=== PATIENT | male | born 1980 | race American Indian/Alaskan Native ===

== ENCOUNTER 2016-07-19 03:18 | Emergency (ER) | payer SELFPAY | END 2016-07-19 03:32 | disposition left against medical advice (07) | LOC: ED 03:18 | DX: Z00.8 Encounter for other general examination (principal); Z53.21 Procedure and treatment not carried out due to patient leaving prior to being seen by health care provider ==

== ENCOUNTER 2016-10-09 18:32 | Emergency (ER) | payer SELFPAY ==
[2016-10-09] MEDS ORDERED: ATIVAN IM PRN (20:15)
--- NOTE | 2016-10-09 20:21 | Emergency Department Report ---
ED General Adult HPI - General Chief complaint: Psych Stated complaint: 1013/MH EVAL Time Seen by Provider: 10/09/16 20:13 Source: patient, RN notes reviewed Mode of arrival: Ambulatory Limitations: No Limitations - History of Present Illness Initial comments: This is a 35-year-old male. The patient has previously unknown to me. The patient presents to the ER requesting alcohol detox. The patient reports that he drinks multiple times per week. The patient is not homicidal or suicidal. The patient is not having hallucinations. police documentation does indicate that the patient was running towards someone with a loaded gun. The patient clarifies this, and indicates the gun was not loaded, and indicates that it was an antique toy. He indicates that he was drunk when he was doing this, and he also indicates that he knows that this was not an appropriate thing to do. The patient is adamant that he is not homicidal or suicidal. No headache, neck pain, chest pain, abdominal pain or shortness of breath. -: Gradual Improves with: none Worsens with: none Associated Symptoms: denies other symptoms - Related Data Previous Rx's Medication Instructions Recorded Last Taken Type Ondansetron [Zofran Odt] 4 mg PO QID PRN #20 tab.rapdis 10/09/16 Unknown Rx chlordiazePOXIDE [Librium] 25 mg PO Q8H PRN #15 capsule 10/09/16 Unknown Rx Allergies Allergy/AdvReac Type Severity Reaction Status Date / Time No Known Allergies Allergy Verified 03/15/16 02:23 ED Review of Systems ROS: Stated complaint: 1013/MH EVAL Other details as noted in HPI Constitutional: denies: fever Eyes: denies: vision change ENT: denies: epistaxis Respiratory: denies: cough Cardiovascular: denies: chest pain Gastrointestinal: denies: abdominal pain Genitourinary: as per HPI Musculoskeletal: as per HPI Skin: as per HPI Psychiatric: denies: homicidal thoughts, suicidal thoughts ED Past Medical Hx - Past Medical History Previous Medical History?: Yes Hx Hypertension: No Hx CVA: No Hx Heart Attack/AMI: No Hx Congestive Heart Failure: No Hx Diabetes: No Hx Deep Vein Thrombosis: No Hx Pulmonary Embolism: No Hx GERD: No Hx Liver Disease: No Hx Renal Disease: No Hx of Cancer: No Hx Sickle Cell Disease: No Hx Arthritis: No Hx Headaches / Migraines: No Hx Seizures: No Hx Kidney Stones: No Hx Psychiatric Treatment: Yes Hx Asthma: No Hx COPD: No Hx Tuberculosis: No Hx Dementia: No Hx HIV: No - Social History Smoking Status: Current Some Day Smoker Substance Use Type: Alcohol - Medications Home Medications: Home Medications Medication Instructions Recorded Confirmed Last Taken Type Ondansetron [Zofran Odt] 4 mg PO QID PRN #20 tab.rapdis 10/09/16 Unknown Rx chlordiazePOXIDE [Librium] 25 mg PO Q8H PRN #15 capsule 10/09/16 Unknown Rx ED Physical Exam - General Limitations: No Limitations General appearance: alert, in no apparent distress - Head Head exam: Present: atraumatic, normocephalic - Eye Eye exam: Present: normal appearance, EOMI. Absent: nystagmus - ENT ENT exam: Present: normal exam, normal orophraynx, mucous membranes moist, normal external ear exam - Neck Neck exam: Present: normal inspection, full ROM. Absent: tenderness, meningismus - Respiratory Respiratory exam: Present: normal lung sounds bilaterally. Absent: respiratory distress, wheezes, rales, rhonchi, stridor, chest wall tenderness, accessory muscle use, decreased breath sounds, prolonged expiratory - Cardiovascular Cardiovascular Exam: Present: regular rate, normal rhythm, normal heart sounds. Absent: bradycardia, tachycardia, irregular rhythm, systolic murmur, diastolic murmur, rubs, gallop - GI/Abdominal GI/Abdominal exam: Present: soft, normal bowel sounds. Absent: distended, tenderness, guarding, rebound, rigid, pulsatile mass - Rectal Rectal exam: Present: deferred - Extremities Exam Extremities exam: Present: normal inspection, full ROM, normal capillary refill. Absent: tenderness, pedal edema, joint swelling, calf tenderness - Back Exam Back exam: Present: normal inspection, full ROM. Absent: tenderness, CVA tenderness (R), CVA tenderness (L), muscle spasm, paraspinal tenderness, vertebral tenderness - Neurological Exam Neurological exam: Present: alert, oriented X3, normal gait, other (Extraocular movements intact. Tongue midline. No facial droop. Facial sensation intact to light touch in the V1, V2, V3 distribution bilaterally. 5 and 5 strength in 4 extremities.. Sensation is intact to light touch in 4 extremities.). Absent : motor sensory deficit - Psychiatric Psychiatric exam: Present: normal affect, normal mood. Absent: homicidal ideation, suicidal ideation - Skin Skin exam: Present: warm, dry, intact, normal color. Absent: rash ED Course Vital Signs 10/09/16 10/09/16 19:52 21:41 Temperature 98.4 F 98.4 F Pulse Rate 107 H 88 Respiratory 20 18 Rate Blood Pressure 124/91 Blood Pressure 127/81 [Right] O2 Sat by Pulse 97 98 Oximetry ED Medical Decision Making - Lab Data Result diagrams: 10/09/16 20:25 10/09/16 20:25 Vital Signs 10/09/16 10/09/16 19:52 21:41 Temperature 98.4 F 98.4 F Pulse Rate 107 H 88 Respiratory 20 18 Rate Blood Pressure 124/91 Blood Pressure 127/81 [Right] O2 Sat by Pulse 97 98 Oximetry Lab Results 10/09/16 10/09/16 10/09/16 Range/Units 20:25 20:25 20:25 WBC 14.3 H (4.5-11.0) K/mm3 RBC 4.81 (3.65-5.03) M/mm3 Hgb 14.9 (11.8-15.2) gm/dl Hct 44.4 (35.5-45.6) % MCV 92 (84-94) fl MCH 31 (28-32) pg MCHC 34 (32-34) % RDW 14.3 (13.2-15.2) % Plt Count 300 (140-440) K/mm3 Sodium 136 L (137-145) mmol/L Potassium 4.1 (3.6-5.0) mmol/L Chloride 96.6 L (98-107) mmol/L Carbon Dioxide 21 L (22-30) mmol/L Anion Gap 23 mmol/L BUN 8 L (9-20) mg/dL Creatinine 0.9 (0.8-1.5) mg/dL Estimated GFR > 60 ml/min BUN/Creatinine Ratio 8.88 % Glucose 99 (75-100) mg/dL Calcium 9.4 (8.4-10.2) mg/dL Magnesium 2.10 (1.7-2.3) mg/dL Total Bilirubin 0.30 (0.1-1.2) mg/dL AST 28 (5-40) units/L ALT 22 (7-56) units/L Alkaline Phosphatase 113 (35-129) units/L Total Protein 8.4 H (6.3-8.2) g/dL Albumin 4.7 (3.9-5) g/dL Albumin/Globulin Ratio 1.3 % Urine Color (Yellow) Urine Turbidity (Clear) Urine pH (5.0-7.0) Ur Specific [place] (1.003-1.030) Urine Protein (Negative) mg/dL Urine Glucose (UA) (Negative) mg/dL Urine Ketones (Negative) mg/dL Urine Blood (Negative) Urine Nitrite (Negative) Urine Bilirubin (Negative) Urine Urobilinogen (<2.0) mg/dL Ur Leukocyte Esterase (Negative) Urine WBC (Auto) (0.0-6.0) /HPF Urine RBC (Auto) (0.0-6.0) /HPF U Epithel Cells (Auto) (0-13.0) /HPF Urine Bacteria (Auto) (Negative) /HPF Hyaline Casts /LPF Urine Mucus /HPF Urine Sperm (AGRISCIENCE TEACHER) /HPF Salicylates (2.8-20.0) mg/dL Urine Opiates Screen Urine Methadone Screen Acetaminophen (10.0-30.0) ug/mL Ur Barbiturates Screen Ur Phencyclidine Scrn Ur Amphetamines Screen U Benzodiazepines Scrn Urine Cocaine Screen U Marijuana (THC) Screen Drugs of Abuse Note Plasma/Serum Alcohol (0-0.07) gm% 10/09/16 10/09/16 10/09/16 Range/Units 20:25 20:25 20:25 WBC (4.5-11.0) K/mm3 RBC (3.65-5.03) M/mm3 Hgb (11.8-15.2) gm/dl Hct (35.5-45.6) % MCV (84-94) fl MCH (28-32) pg MCHC (32-34) % RDW (13.2-15.2) % Plt Count (140-440) K/mm3 Sodium (137-145) mmol/L Potassium (3.6-5.0) mmol/L Chloride (98-107) mmol/L Carbon Dioxide (22-30) mmol/L Anion Gap mmol/L BUN (9-20) mg/dL Creatinine (0.8-1.5) mg/dL Estimated GFR ml/min BUN/Creatinine Ratio % Glucose (75-100) mg/dL Calcium (8.4-10.2) mg/dL Magnesium (1.7-2.3) mg/dL Total Bilirubin (0.1-1.2) mg/dL AST (5-40) units/L ALT (7-56) units/L Alkaline Phosphatase (35-129) units/L Total Protein (6.3-8.2) g/dL Albumin (3.9-5) g/dL Albumin/Globulin Ratio % Urine Color (Yellow) Urine Turbidity (Clear) Urine pH (5.0-7.0) Ur Specific [place] (1.003-1.030) Urine Protein (Negative) mg/dL Urine Glucose (UA) (Negative) mg/dL Urine Ketones (Negative) mg/dL Urine Blood (Negative) Urine Nitrite (Negative) Urine Bilirubin (Negative) Urine Urobilinogen (<2.0) mg/dL Ur Leukocyte Esterase (Negative) Urine WBC (Auto) (0.0-6.0) /HPF Urine RBC (Auto) (0.0-6.0) /HPF U Epithel Cells (Auto) (0-13.0) /HPF Urine Bacteria (Auto) (Negative) /HPF Hyaline Casts /LPF Urine Mucus /HPF Urine Sperm (AGRISCIENCE TEACHER) /HPF Salicylates < 0.3 L (2.8-20.0) mg/dL Urine Opiates Screen Urine Methadone Screen Acetaminophen < 15.0 (10.0-30.0) ug/mL Ur Barbiturates Screen Ur Phencyclidine Scrn Ur Amphetamines Screen U Benzodiazepines Scrn Urine Cocaine Screen U Marijuana (THC) Screen Drugs of Abuse Note Plasma/Serum Alcohol < 0.01 (0-0.07) gm% 10/09/16 10/09/16 Range/Units 20:30 20:30 WBC (4.5-11.0) K/mm3 RBC (3.65-5.03) M/mm3 Hgb (11.8-15.2) gm/dl Hct (35.5-45.6) % MCV (84-94) fl MCH (28-32) pg MCHC (32-34) % RDW (13.2-15.2) % Plt Count (140-440) K/mm3 Sodium (137-145) mmol/L Potassium (3.6-5.0) mmol/L Chloride (98-107) mmol/L Carbon Dioxide (22-30) mmol/L Anion Gap mmol/L BUN (9-20) mg/dL Creatinine (0.8-1.5) mg/dL Estimated GFR ml/min BUN/Creatinine Ratio % Glucose (75-100) mg/dL Calcium (8.4-10.2) mg/dL Magnesium (1.7-2.3) mg/dL Total Bilirubin (0.1-1.2) mg/dL AST (5-40) units/L ALT (7-56) units/L Alkaline Phosphatase (35-129) units/L Total Protein (6.3-8.2) g/dL Albumin (3.9-5) g/dL Albumin/Globulin Ratio % Urine Color Yellow (Yellow) Urine Turbidity Clear (Clear) Urine pH 5.0 (5.0-7.0) Ur Specific [place] 1.018 (1.003-1.030) Urine Protein <15 mg/dl (Negative) mg/dL Urine Glucose (UA) Neg (Negative) mg/dL Urine Ketones Neg (Negative) mg/dL Urine Blood Neg (Negative) Urine Nitrite Neg (Negative) Urine Bilirubin Neg (Negative) Urine Urobilinogen < 2.0 (<2.0) mg/dL Ur Leukocyte Esterase Neg (Negative) Urine WBC (Auto) 2.0 (0.0-6.0) /HPF Urine RBC (Auto) 2.0 (0.0-6.0) /HPF U Epithel Cells (Auto) < 1.0 (0-13.0) /HPF Urine Bacteria (Auto) 1+ (Negative) /HPF Hyaline Casts 1 /LPF Urine Mucus Few /HPF Urine Sperm Few (AGRISCIENCE TEACHER) /HPF Salicylates (2.8-20.0) mg/dL Urine Opiates Screen Presumptive negative Urine Methadone Screen Presumptive negative Acetaminophen (10.0-30.0) ug/mL Ur Barbiturates Screen Presumptive negative Ur Phencyclidine Scrn Presumptive negative Ur Amphetamines Screen Presumptive negative U Benzodiazepines Scrn Presumptive negative Urine Cocaine Screen Presumptive positive U Marijuana (THC) Screen Presumptive negative Drugs of Abuse Note Disclamer Plasma/Serum Alcohol (0-0.07) gm% - Medical Decision Making Differential diagnosis: Alcohol abuse, history of cocaine abuse, requesting alcohol detox Assessment and plan: 35-year-old male who is clinically sober, not homicidal, not suicidal, pleasant, calm, cooperative, requesting alcohol detox. The patient is seen in conjunction with the crisis team, who indicates that the patient does not meet 1013 criteria. The patient's does indicate that he was running towards a person while he was drunk with a toy gun, he does appear to have incised that this is not an appropriate thing to do, the patient is exhibiting insight. Patient is not tachycardic, tremulous or diaphoretic, he is not having hallucinations, he will be started on as needed Zofran and Librium, and he is given outpatient resources for alcohol detox. Critical care attestation.: If time is entered above; I have spent that time in minutes in the direct care of this critically ill patient, excluding procedure time. ED Disposition Clinical Impression: History of alcohol abuse Disposition: DC-01 TO HOME OR SELFCARE Is pt being admited?: No Does the pt Need Aspirin: No Condition: Stable Instructions: Abuse of Alcohol (ED), Polysubstance Abuse (ED) Additional Instructions: Take the Librium as needed for symptoms of alcohol withdrawal, which included shaking, sweating, nausea, tremulousness. Take the Zofran as needed for nausea. Discontinue consumption of alcohol, and cocaine if you are using cocaine. Cocaine is not good for your health. Follow up as an outpatient with the referrals that have been given to you. Return to the ER right away with fevers, chills, chest pain, shortness of breath , nausea, vomiting, confusion, homicidality, suicidality. Prescriptions: chlordiazePOXIDE [Librium] 25 mg PO Q8H PRN #15 capsule PRN Reason: Alcohol Withdrawal Ondansetron [Zofran Odt] 4 mg PO QID PRN #20 tab.rapdis PRN Reason: Nausea Referrals: PRIMARY CARE, [Primary Care Provider] - 3-5 Days MARIYA ZAMORA MD [Staff Physician] - 3-5 Days [facility] [Outside] - 3-5 Days
[2016-10-09] MEDS ORDERED: GEODON IM ONE (20:24)
[2016-10-09] MEDS ORDERED: HALDOL IM ONE (20:24)
[2016-10-09] MEDS ORDERED: ATIVAN IM ONE (20:24)
[2016-10-09 20:38] LABS: Urine Drugs of Abuse Note Disclamer
[2016-10-09 20:50] LABS: Hematocrit 44.4 % (35.5-45.6); Hemoglobin 14.9 gm/dl (11.8-15.2); Mean Corpuscular HGB Conc 34 % (32-34); Mean Corpuscular Hemoglobin 31 pg (28-32); Mean Corpuscular Volume 92 fl (84-94); Platelet Count 300 K/mm3 (140-440); Red Blood Count 4.81 M/mm3 (3.65-5.03); Red Cell Distribution Width 14.3 % (13.2-15.2); White Blood Count 14.3 K/mm3 (4.5-11.0)
[2016-10-09 20:54] LABS: Bacteria,Urine 1+ /HPF (Negative); Bilirubin,Urine NEG (Negative); Blood,Urine NEG (Negative); Ketones,Urine NEG (Negative); Leukocyte Esterase,Urine NEG (Negative); Mucus,Urine FEW /HPF; Nitrite,Urine NEG (Negative); Protein,Urine <15 mg/dL mg/dL (Negative); Sperm,Urine FEW /HPF (NP); Urobilinogen,Urine < 2.0 mg/dL (<2.0)
[2016-10-09 21:02] LABS: Alanine Aminotransferase 22 units/L (7-56); Albumin 4.7 g/dL (3.9-5); Albumin/Globulin Ratio 1.3 %; Alkaline Phosphatase 113 units/L (35-129); Anion Gap 23 mmol/L; BUN/Creatinine Ratio 8.88; Blood Urea Nitrogen 8 mg/dL (9-20); Calcium 9.4 mg/dL (8.4-10.2); Carbon Dioxide 21 mmol/L (22-30); Chloride 96.6 mmol/L (98-107); Glucose 99 mg/dL (75-100); Potassium 4.1 mmol/L (3.6-5.0); Sodium 136 mmol/L (137-145); Total Protein 8.4 g/dL (6.3-8.2)
[2016-10-09 21:42] VITALS: BP 127/81
== END 2016-10-09 22:17 | disposition home or self-care (01) ==
LOC: ED 18:32
DX: F10.10 Alcohol abuse, uncomplicated (principal); F17.200 Nicotine dependence, unspecified, uncomplicated
CPT/HCPCS: 36415; 80053; 80307; 81001; 83735; 85027; 99284; G0480; J3486; 80320; J1630; J2060

== ENCOUNTER 2016-12-22 04:04 | Emergency (ER) | payer SELFPAY ==
[2016-12-22 06:10] LABS: Basophils % (Auto) 0.4 % (0.0-1.8); Eosinophils % (Auto) 0.3 % (0.0-4.3); Hematocrit 46.1 % (35.5-45.6); Hemoglobin 15.2 gm/dl (11.8-15.2); Mean Corpuscular HGB Conc 33 % (32-34); Mean Corpuscular Hemoglobin 31 pg (28-32); Mean Corpuscular Volume 93 fl (84-94); Platelet Count 310 K/mm3 (140-440); Red Blood Count 4.99 M/mm3 (3.65-5.03); Red Cell Distribution Width 14.1 % (13.2-15.2); White Blood Count 12.4 K/mm3 (4.5-11.0)
[2016-12-22 06:29] LABS: Anion Gap 26 mmol/L; Blood Urea Nitrogen 12 mg/dL (9-20); Calcium 9.6 mg/dL (8.4-10.2); Carbon Dioxide 22 mmol/L (22-30); Chloride 93.1 mmol/L (98-107); Glucose 69 mg/dL (75-100); Potassium 4.1 mmol/L (3.6-5.0); Sodium 137 mmol/L (137-145)
--- NOTE | 2016-12-22 07:38 | Emergency Department Report ---
HPI - General Chief Complaint: Psych Time Seen by Provider: 12/22/16 07:17 - [facility] HPI: Room 10 The patient is 35-year-old male presenting with a chief complaint of altered behavior. Patient was brought in by police under [id number] stating "paranoid, hallucinating, walking around the neighborhood hiding in bushes. Called 911 stating that his mother was trapped in the house and could not breathe. His mother was not trapped and was in good health." "Diagnosed with bipolar disorder. Hallucinates. Refuses to take medication. Drinks excessively when depressed." The patient states he ran out of the house because his mother complained of shortness of breath. Patient states he currently feels "good. Patient does desire help with alcohol abuse. Patient states he drinks between a 6 and 12 pack of beer daily and last consumed yesterday morning Location: Mental state Duration: [see above] Quality: Erratic Severity: Moderate Modifying factors: [see above] Context: [see above] Mode of transportation: [not driving] ED Past Medical Hx - Past Medical History Previous Medical History?: Yes Hx Psychiatric Treatment: Yes (ADHD) - Surgical History Past Surgical History?: No - Family History Family history: no significant - Social History Smoking Status: Current Some Day Smoker Substance Use Type: Alcohol (6-12 beers daily), Marijuana - Medications Home Medications: Home Medications Medication Instructions Recorded Confirmed Last Taken Type No Known Home Medications [No 12/22/16 12/22/16 Unknown History Reported Home Medications] ED Review of Systems ROS: Stated complaint: MH EVAL Other details as noted in HPI Comment: All other systems reviewed and negative Constitutional: denies: chills, fever Eyes: denies: eye pain, eye discharge, vision change ENT: denies: ear pain, throat pain Respiratory: denies: cough, shortness of breath, wheezing Cardiovascular: denies: chest pain, palpitations Endocrine: no symptoms reported Gastrointestinal: denies: abdominal pain, nausea, diarrhea Genitourinary: denies: urgency, dysuria Musculoskeletal: denies: back pain, joint swelling, arthralgia Skin: denies: rash, lesions Neurological: denies: headache, weakness, paresthesias Psychiatric: other (paranoid behavior). denies: homicidal thoughts, suicidal thoughts Hematological/Lymphatic: denies: easy bleeding, easy bruising Physical Exam - Physical Exam Vital Signs: Vital Signs 12/22/16 05:19 Temperature 98.2 F Pulse Rate 106 H Respiratory 16 Rate Blood Pressure 145/65 O2 Sat by Pulse 99 Oximetry Physical Exam: GENERAL: The patient is well-developed well-nourished male lying on stretcher not appearing to be in acute distress. [] HEENT: Normocephalic. Atraumatic. Extraocular motions are intact. Patient has moist mucous membranes. NECK: Supple. No meningitic signs are noted. Trachea midline CHEST/LUNGS: Clear to auscultation. There is no respiratory distress noted. HEART/CARDIOVASCULAR: Regular. There is no tachycardia. There is no gallop rub or murmur. ABDOMEN: Abdomen is soft, nontender. Patient has normal bowel sounds. There is no abdominal distention. SKIN: There is no rash. There is no edema. There is no diaphoresis. NEURO: The patient is awake, alert, and oriented. The patient is cooperative. The patient has no focal neurologic deficits. The patient has normal speech. Cranial nerves II through XII grossly intact, no drift. No tremulousness noted MUSCULOSKELETAL:There is no evidence of acute injury. ED Course Vital Signs 12/22/16 05:19 Temperature 98.2 F Pulse Rate 106 H Respiratory 16 Rate Blood Pressure 145/65 O2 Sat by Pulse 99 Oximetry ED Medical Decision Making - Lab Data Result diagrams: 12/22/16 05:39 12/22/16 05:39 - Differential Diagnosis bipolar disorder, alcohol abuse, Critical care attestation.: If time is entered above; I have spent that time in minutes in the direct care of this critically ill patient, excluding procedure time. ED Disposition Clinical Impression: Polysubstance abuse Disposition: Z-07 ELOPED Is pt being admited?: No Does the pt Need Aspirin: No Condition: Stable Referrals: PRIMARY CARE, [Primary Care Provider] - 3-5 Days
[2016-12-22] MEDS ORDERED: VITAMIN B-1 100 MG, FOLVITE 1 MG, INFUVITE 10 ML, MAGNESIUM SULFATE 2 GM in NACL 0.9% 1... IV ONE (07:39)
[2016-12-22 07:43] LABS: Urine Drugs of Abuse Note Disclamer
[2016-12-22] MEDS ORDERED: NACL 0.9% 1000 ML 1,000 ML ONE (08:38)
[2016-12-22] MEDS ORDERED: NACL 0.9% 1000 ML 1,000 ML IV ONE ×2 (08:51→08:53)
[2016-12-22 08:53] LABS: Bacteria,Urine 1+ /HPF (Negative); Bilirubin,Urine NEG (Negative); Blood,Urine NEG (Negative); Ketones,Urine 20 mg/dL (Negative); Leukocyte Esterase,Urine NEG (Negative); Mucus,Urine FEW /HPF; Nitrite,Urine NEG (Negative); Protein,Urine <15 mg/dL mg/dL (Negative); Urobilinogen,Urine < 2.0 mg/dL (<2.0)
--- NOTE | 2016-12-22 15:48 | Consultation ---
History of Present Illness - Reason for Consult Consult date: 12/22/16 Reason for consult: psychiatric evaluation - Chief Complaint Chief complaint: "I thought my mom was sick." The patient is 35-year-old male see for psychiatric evaluation in the ER. Patient was brought in by police under [id number] stating "paranoid, hallucinating, walking around the neighborhood hiding in bushes. Someone called 911 stating that his mother was trapped in the house and could not breathe. His mother was not trapped and was in good health." Collateral per police documentation reveals he is diagnosed with bipolar disorder. He refuses for anyone to speak with his mother. He states she would probably say he needs help for alcohol. The police documentation reports he refuses to take medication. Patient states he drinks between a 6 and 12 pack of beer daily and last consumed yesterday morning. His alcohol level was less than 0.01. He was positive for cocaine in his UDS but denies use. He states he might have been so intoxicated he could have. He currently denies AVH or SI/HI. He is minimizing his initial presentation. Medications and Allergies Allergies Allergy/AdvReac Type Severity Reaction Status Date / Time No Known Allergies Allergy Verified 12/22/16 09:28 Home Medications Medication Instructions Recorded Confirmed Last Taken Type No Known Home Medications [No 12/22/16 12/22/16 Unknown History Reported Home Medications] Past psychiatric history - Past Medical History Past Medical History: other (he denies) - past Psychiatric treatment and history Psych: Bipolar - Social History Social history: other (he reports an issue with a 'whiteside" and that he cannot be around his mother but he is staying with her) Mental Status Exam - Vital signs Last Vital Signs Temp 98.2 F 12/22/16 05:19 Pulse 75 12/22/16 08:20 Resp 16 12/22/16 08:20 BP 120/74 12/22/16 08:20 Pulse Ox 100 12/22/16 08:20 - Exam Orientation: time, place, person Affect: anxious Mood: congruent with affect Thought content: paranoia Thought Process: Circumstantial Perceptions: other (denies) Speech: normal rate and pattern Concentration: distractible Motor activity: normal Level of consciousness: alert Memory: Intact Sleep Symptoms: Restless Interaction: other (evasive) Results Result Diagrams: 12/22/16 05:39 12/22/16 05:39 Abnormal lab results 12/22/16 12/22/16 Range/Units 05:39 05:39 WBC 12.4 H (4.5-11.0) K/mm3 Hct 46.1 H (35.5-45.6) % Lymph % (Auto) 10.4 L (13.4-35.0) % [place] % (Auto) 9.8 H (0.0-7.3) % [place] # 1.2 H (0.0-0.8) K/mm3 Seg Neutrophils % 79.1 H (40.0-70.0) % Seg Neutrophils # 9.8 H (1.8-7.7) K/mm3 Chloride 93.1 L (98-107) mmol/L Glucose 69 L (75-100) mg/dL All other labs normal. Assessment and Plan Assessment and plan: Impression: He is evasive. He admits to daily drinking, although his alcohol level was < 0.01. He did not readily admit to cocaine use. The mortgage loan officer originator report indicates he has bipolar disorder and has been non compliant with medication with recent paranoia and bizarre behavior. psychosis unspecified alcohol use disorder cocaine use historical dx of bipolar disorder ddx: substance induced psychotic disorder Recommendation: 1013 for paranoia and bizarre behavior. Consent to speak to his mother is needed but he refuses. Transfer to inpatient psychiatric facility for stabilization. CIWA if indicated. Risperdal 1mg hs for psychotic symptoms/mood Ativan 1mg [id number] prn agitation
[2016-12-22] MEDS ORDERED: ATIVAN IM PRN (15:49)
[2016-12-22] MEDS: RisperDAL PO SCH (23:06)
--- NOTE | 2016-12-23 15:47 | Progress Note ---
Subjective - Reason for Consult Consult date: 12/23/16 Reason for consult: follow up - Chief Complaint Chief complaint: "I thought my mom was sick." The patient is 35-year-old male see for psychiatric evaluation in the ER. Patient was brought in by police under 1013 stating "paranoid, hallucinating, walking around the neighborhood hiding in bushes. Someone called 911 stating that his mother was trapped in the house and could not breathe. His mother was not trapped and was in good health." Collateral per police documentation reveals he is diagnosed with bipolar disorder. He refuses for anyone to speak with his mother. He states she would probably say he needs help for alcohol. The police documentation reports he refuses to take medication. Patient states he drinks between a 6 and 12 pack of beer daily and last consumed yesterday morning. His alcohol level was less than 0.01. He was positive for cocaine in his UDS but denies use. He states he might have been so intoxicated he could have. He currently denies AVH or SI/HI. He is minimizing his initial presentation. Mental Status Exam - Vital signs Last Vital Signs Temp 98.6 F 12/23/16 09:48 Pulse 80 12/23/16 09:48 Resp 20 12/23/16 09:48 BP 107/61 12/23/16 09:48 Pulse Ox 95 12/23/16 09:48 Assessment and Plan - Exam Orientation: time, place, person Affect: anxious Mood: congruent with affect Thought content: he denies suicidal or homicidal ideation Thought Process: Circumstantial Perceptions: other (denies) Speech: normal rate and pattern Concentration: focus Motor activity: normal Level of consciousness: alert Memory: Intact Sleep Symptoms: Restless Interaction: cooperative Assessment and plan: Impression: He has admitted to regular alcohol and cocaine use, on the weekends. He admits the paranoia happens when he is coming down from cocaine and has resulted in police being called. He states he told the police he had bipolar because he did not want them to find out his behavior was because of cocaine. psychosis unspecified alcohol use disorder cocaine use substance induced psychotic disorder Recommendation: He consents to staff speaking with his mother but states she is not available until Saturday. He does not have number readily available. Consider recommendation for outpatient mental health and substance use treatment will further evaluation and collateral. CIWA if indicated. Risperdal 1mg hs for psychotic symptoms/mood-, he refuses stating his paranoia has resolved. Ativan 1mg [id number] prn agitation
[2016-12-23] MEDS: RisperDAL PO SCH (22:33)
[2016-12-24 08:36] VITALS: BP 106/61
--- NOTE | 2016-12-24 14:04 | Progress Note ---
Subjective - Reason for Consult Consult date: 12/24/16 Reason for consult: Psychiatry Follow-up - Chief Complaint Chief complaint: "I need help with my drinking and substance abuse" The patient is 35-year-old male see for psychiatric evaluation in the ER. Patient was brought in by police under 1013 stating "paranoid, hallucinating, walking around the neighborhood hiding in bushes. Today the patient is calm and cooperative during the assessment. He was adamant about getting help for his substance and alcohol abuse (etoh) once discharged. I spoke with his mother Yasmin Shirley [phone], she stated that she will be his support system. She stated that her son does not have a mental health hx (Bipolar Do) other than using recreational drugs and excessive alcohol consumption. He denies SI/HI's, AVH's, and depression. Mental Status Exam - Vital signs Last Vital Signs Temp 98.6 F 12/24/16 08:35 Pulse 72 12/24/16 08:35 Resp 16 12/24/16 08:36 BP 106/61 12/24/16 08:35 Pulse Ox 99 12/24/16 08:36 - Exam Narrative exam: MSE: Appearance: calm, cooperative Behavior: regular eye contact Speech: regular rate and tone Mood: "better" Affect: appropriate Thought Process: linear Thought Content: denies SI/HI's and AVH's Motor Activity: ambulatory Cognition: A/Ox 3 Insight: fair Judgment: fair Assessment and Plan Impression: Psychosis unspecified, alcohol use disorder, Substance Use DO, Substance induced psychotic disorder. No acute withdrawals noted (etoh). Patient is no threat to self or others. Recommendation/Plan: Rescind 1013. Patient will follow-up with [facility] for outpatient rehab services. Patient does not need a prescription. D/C'd Risperdal.
--- NOTE | 2016-12-24 16:34 | Event Note ---
Date: 12/24/16 The patient is assessed by myself. He is neither homicidal nor suicidal. He is alert and oriented 3, with a GCS of 15, NIH score of 0, and he is clinically sober at this time. His involuntary hold/1013 has been discontinued by psychiatry, and the plan is for the patient to follow up with the [facility]. He will be discharged at this time with a presumptive diagnosis of substance abuse psychotic disorder. Vital Signs 12/22/16 12/22/16 12/22/16 05:19 05:30 08:20 Temperature 98.2 F Pulse Rate 106 H 75 Respiratory 16 18 16 Rate Blood Pressure 145/65 Blood Pressure 120/74 [Right] O2 Sat by Pulse 99 100 100 Oximetry 12/22/16 12/22/16 12/23/16 20:18 22:50 09:48 Temperature 98.7 F 98.6 F Pulse Rate 81 80 Respiratory 20 20 20 Rate Blood Pressure Blood Pressure 102/65 107/61 [Right] O2 Sat by Pulse 100 99 95 Oximetry 12/24/16 12/24/16 08:35 08:36 Temperature 98.6 F Pulse Rate 72 Respiratory 16 16 Rate Blood Pressure Blood Pressure 106/61 [Right] O2 Sat by Pulse 99 99 Oximetry Vital Signs 12/22/16 12/22/16 12/22/16 05:19 05:30 08:20 Temperature 98.2 F Pulse Rate 106 H 75 Respiratory 16 18 16 Rate Blood Pressure 145/65 Blood Pressure 120/74 [Right] O2 Sat by Pulse 99 100 100 Oximetry 12/22/16 12/22/16 12/23/16 20:18 22:50 09:48 Temperature 98.7 F 98.6 F Pulse Rate 81 80 Respiratory 20 20 20 Rate Blood Pressure Blood Pressure 102/65 107/61 [Right] O2 Sat by Pulse 100 99 95 Oximetry 12/24/16 12/24/16 08:35 08:36 Temperature 98.6 F Pulse Rate 72 Respiratory 16 16 Rate Blood Pressure Blood Pressure 106/61 [Right] O2 Sat by Pulse 99 99 Oximetry
== END 2016-12-24 17:17 | disposition home or self-care (01) ==
LOC: EEVIPCON 04:04 → ED 04:04
DX: F12.10 Cannabis abuse, uncomplicated (principal); F10.10 Alcohol abuse, uncomplicated; F17.210 Nicotine dependence, cigarettes, uncomplicated
CPT/HCPCS: 36415; 80048; 80307; 81001; 82550; 85025; 96365; 96366; 99284; G0480; J3411; J3475; J7030; 80320

== ENCOUNTER 2019-11-13 22:49 | Emergency (ER) | payer SELFPAY ==
--- NOTE | 2019-11-14 00:23 | Emergency Department Report ---
ED Psych HPI - General Chief Complaint: Psych Stated Complaint: MH EVAL Time Seen by Provider: 11/14/19 00:17 Source: patient, EMS Mode of arrival: Ambulatory Limitations: No Limitations - History of Present Illness Initial Comments: Patient is a 38-year-old male that presents emergency room with no complaints. Patient states that he was at home in his shower and his alarm went off because somebody was breaking in through the window and he jumped out of the shower and left his house. Patient states he ran away from his house and the police found him. The police then went to his house and saw that the alarm was tripped by an open window and told him that he could either go to longterm or go to the hospital for mental evaluation. Patient was brought in by EMS. Patient does not have any psych history. Patient denies suicidal homicidal addition. Patient denies hallucinations. Patient states he was purely trying to get away from what he thought was somebody breaking into his house. Patient states that he remembers the entire scenario. Patient states he only came here because his only options were to go to longterm or to come to the hospital and be evaluated. Patient states then EMS brought him to the hospital against his will but he did not want to go to longterm so he came to the hospital anyway. Patient states he does not want to be here but he did not know what else to do and he did not want to go to longterm. Patient states he is not having any issues and is ready to go. Patient denies chest pain or shortness of breath. Patient denies abdominal pain. Patient denies any physical complaints. Patient denies recent travel. Patient denies recent international travel. Patient denies exposure to the novel coronavirus. Patient denies sick contacts. Patient denies fever and chills. Patient denies cough. Patient denies diarrhea. Patient denies coming in contact with anybody with symptoms of the novel coronavirus. -: Sudden Associated Psychiatric Symptoms: none History of same: No Improves With: none Worsens With: none Associated Symptoms: denies other symptoms. denies: confusion, headache, shortness of breath, nausea, vomiting, syncope, insomnia Treatments Prior to Arrival: none - Related Data Home Medications Medication Instructions Recorded Confirmed Last Taken No Known Home Medications [No 12/22/16 12/22/16 Unknown Reported Home Medications] Allergies Allergy/AdvReac Type Severity Reaction Status Date / Time No Known Allergies Allergy Verified 12/22/16 09:28 ED Review of Systems ROS: Stated complaint: MH EVAL Other details as noted in HPI Constitutional: denies: chills, fever Eyes: denies: eye pain, eye discharge, vision change ENT: denies: ear pain, throat pain Respiratory: denies: cough, shortness of breath, wheezing Cardiovascular: denies: chest pain, palpitations Endocrine: no symptoms reported Gastrointestinal: denies: abdominal pain, nausea, diarrhea Genitourinary: denies: urgency, dysuria Musculoskeletal: denies: back pain, joint swelling, arthralgia Skin: denies: rash, lesions Neurological: denies: headache, weakness, paresthesias Psychiatric: denies: anxiety, depression, auditory hallucinations, visual hallucinations, homicidal thoughts, suicidal thoughts Hematological/Lymphatic: denies: easy bleeding, easy bruising ED Past Medical Hx - Past Medical History Previous Medical History?: No Hx Hypertension: No Hx CVA: No Hx Heart Attack/AMI: No Hx Congestive Heart Failure: No Hx Diabetes: No Hx Deep Vein Thrombosis: No Hx Pulmonary Embolism: No Hx GERD: No Hx Liver Disease: No Hx Renal Disease: No Hx Sickle Cell Disease: No Hx Arthritis: No Hx Headaches / Migraines: No Hx Seizures: No Hx Kidney Stones: No Hx Psychiatric Treatment: Yes (ADHD) Hx Asthma: No Hx COPD: No Hx Tuberculosis: No Hx Dementia: No Hx HIV: No - Surgical History Past Surgical History?: No - Family History Family history: no significant - Social History Smoking Status: Current Every Day Smoker Substance Use Type: Alcohol - Medications Home Medications: Home Medications Medication Instructions Recorded Confirmed Last Taken Type No Known Home Medications [No 12/22/16 12/22/16 Unknown History Reported Home Medications] ED Physical Exam - General Limitations: No Limitations General appearance: alert, in no apparent distress - Head Head exam: Present: atraumatic, normocephalic - Eye Eye exam: Present: normal appearance, PERRL Pupils: Present: normal accommodation - ENT ENT exam: Present: mucous membranes moist - Neck Neck exam: Present: normal inspection - Respiratory Respiratory exam: Present: normal lung sounds bilaterally. Absent: respiratory distress - Cardiovascular Cardiovascular Exam: Present: regular rate, normal rhythm. Absent: systolic murmur, diastolic murmur, rubs, gallop - GI/Abdominal GI/Abdominal exam: Present: soft, normal bowel sounds - Rectal Rectal exam: Present: deferred - Extremities Exam Extremities exam: Present: normal inspection - Back Exam Back exam: Present: normal inspection - Neurological Exam Neurological exam: Present: alert, oriented X3 - Psychiatric Psychiatric exam: Present: normal affect, normal mood. Absent: depressed, agitated, anxious, flat affect, manic, homicidal ideation, suicidal ideation - Expanded Psychiatric Exam Expanded Focused psych exam: Absent: pressured speech, internal stimuli, echolalia, psychomotor agitation, delusional, catatonic, mute, perseverating, euphoric, restlessness, flight of ideas, loose associations - Skin Skin exam: Present: warm, dry, intact, normal color. Absent: rash ED Course - Reevaluation(s) Reevaluation #1: Initial evaluation done. Patient does not appear to have any alteration in his mentation or mental health. Patient does not appear to be to himself or others. Patient is having symptoms of acute psychosis. Patient does not have any suicidal or homicidal ideation. Patient does not have any other complaints. At this time the patient is psychiatrically medically cleared. Patient does not require 1013 or inpatient stabilization. Patient does not require further services in the ER. 11/14/19 00:30 ED Medical Decision Making - Medical Decision Making Patient is a 38-year-old male that presents emergency room for a mental health evaluation ordered by the police. EMS brought the patient to the hospital for a mental health evaluation. Patient complaints. Patient of sound mind and body. Patient answers all questions appropriately. Patient does not exhibit any symptoms of acute psychosis. Patient denies suicidal homicidal ideations. From a psychiatric and medical standpoint, the patient is cleared. Patient does not require further emergency services. Patient does not require inpatient psychiatric stabilization. Patient does not require a 1013. Patient does not require an ER hold. Patient will be discharged home. - Differential Diagnosis Normal exam, medical clearance. Mental health evaluation Critical care attestation.: If time is entered above; I have spent that time in minutes in the direct care of this critically ill patient, excluding procedure time. ED Disposition Clinical Impression: Medical clearance for psychiatric admission Disposition: DC-01 TO HOME OR SELFCARE Is pt being admited?: No Does the pt Need Aspirin: No Condition: Stable Instructions: Normal Exam (ED) Additional Instructions: Patient to follow-up with primary care in 2 to 3 days. Patient to return to the ER if condition worsens, changes or new symptoms arise. Referrals: THO GIRALDO MD [Primary Care Provider] - 2-3 Days Time of Disposition: 00:33
[2019-11-14 02:14] VITALS: BP 127/85
== END 2019-11-14 00:52 | disposition home or self-care (01) ==
LOC: ED 22:49
DX: R46.2 Strange and inexplicable behavior (principal); Z00.00 Encounter for general adult medical examination without abnormal findings; F90.8 Attention-deficit hyperactivity disorder, other type; F17.200 Nicotine dependence, unspecified, uncomplicated
CPT/HCPCS: 99283

== ENCOUNTER 2021-06-11 04:04 | Emergency (ER) | payer SELFPAY ==
--- NOTE | 2021-06-11 04:51 | Event Note ---
ED Screening Note ED Screening Note: Complaint: "I just need to get some advice. I need to speak to someone about my problems." HPI: This is a 40-year-old male with history of alcohol and polysubstance abuse. He desires to speak to someone about "ongoing.". He denies suicidal homicidal ideation. Denies hallucinations. Medical screening exam completed. He does not require involuntary hold this time. Awaiting further treatment evaluation by my colleague. Screening labs ordered.
[2021-06-11 05:21] LABS: Basophils % (Auto) 0.4 % (0.0-1.8); Eosinophils # (Auto) 0.2 K/mm3 (0.0-0.4); Eosinophils % (Auto) 1.5 % (0.0-4.3); Hematocrit 43.1 % (35.5-45.6); Hemoglobin 14.4 gm/dl (11.8-15.2); Lymphocytes # (Auto) 2.3 K/mm3 (1.2-5.4); Lymphocytes % (Auto) 20.8 % (13.4-35.0); Mean Corpuscular HGB Conc 33 % (32-34); Mean Corpuscular Volume 90 fl (84-94); Monocytes # (Auto) 1.4 K/mm3 (0.0-0.8); Monocytes % (Auto) 12.4 % (0.0-7.3); Platelet Count 338 K/mm3 (140-440); Red Blood Count 4.77 M/mm3 (3.65-5.03); Red Cell Distribution Width 13.7 % (13.2-15.2)
[2021-06-11 05:35] LABS: BUN/Creatinine Ratio 11; Blood Urea Nitrogen 10 mg/dL (9-20); Calcium 9.5 mg/dL (8.4-10.2); Hemolysis Index 36
--- NOTE | 2021-06-11 06:45 | Emergency Department Report ---
ED Psych HPI - General Chief Complaint: Psych Stated Complaint: MENTAL HEALTH CONCERNS Time Seen by Provider: 06/11/21 06:10 Source: patient, family Mode of arrival: Ambulatory Limitations: No Limitations - History of Present Illness Initial Comments: 40-year-old male with a past medical history of ADHD, anxiety, and depression presents to the hospital with complaints of needing to speak to a doctor. Patient appears to not have any mental health resources and wants advice on to how to get help. He denies hallucinations, homicidal, or suicidal ideation. He also denies physical complaints. He has been on medications in the past but cannot recall the name. Is not currently taking any medications for psychiatric conditions - Related Data Previous Rx's Medication Instructions Recorded Last Taken Type buPROPion XL [Wellbutrin Xl] 150 mg PO QAM 30 Days #30 06/11/21 Unknown Rx traZODone [Desyrel] 50 mg PO QHS 30 Days #30 tab 06/11/21 Unknown Rx Allergies Allergy/AdvReac Type Severity Reaction Status Date / Time No Known Allergies Allergy Verified 12/22/16 09:28 ED Review of Systems ROS: Stated complaint: MENTAL HEALTH CONCERNS Other details as noted in HPI Comment: All other systems reviewed and negative ED Past Medical Hx - Past Medical History Previous Medical History?: Yes Hx Hypertension: No Hx CVA: No Hx Heart Attack/AMI: No Hx Congestive Heart Failure: No Hx Diabetes: No Hx Deep Vein Thrombosis: No Hx Pulmonary Embolism: No Hx GERD: No Hx Liver Disease: No Hx Renal Disease: No Hx Sickle Cell Disease: No Hx Arthritis: No Hx Headaches / Migraines: No Hx Seizures: No Hx Kidney Stones: No Hx Psychiatric Treatment: Yes (ADHD, Anxiety, Depression) Hx Asthma: No Hx COPD: No Hx Tuberculosis: No Hx Dementia: No Hx HIV: No - Surgical History Past Surgical History?: No - Social History Smoking Status: Current Every Day Smoker Substance Use Type: None - Medications Home Medications: Home Medications Medication Instructions Recorded Confirmed Last Taken Type buPROPion XL [Wellbutrin Xl] 150 mg PO QAM 30 Days #30 06/11/21 Unknown Rx traZODone [Desyrel] 50 mg PO QHS 30 Days #30 tab 06/11/21 Unknown Rx ED Physical Exam - General Limitations: No Limitations - Other Other exam information: General: No acute distress Head: Atraumatic Eyes: normal appearance ENT: Moist mucous membranes Neck: Normal appearance, no midline tenderness Chest: Clear to auscultation bilaterally CV: Regular rate and rhythm Abdomen: Soft, normal bowel sounds, nontender, nondistended, no rebound or guarding Back: Normal inspection Extremity: Normal inspection, full range of motion Neuro: Alert O x 3, no facial asymmetry, speech clear, no gross motor sensory deficit Psych: Appropriate behavior Skin: No rash ED Course Vital Signs 06/11/21 06/11/21 06/11/21 04:19 06:34 10:20 Temperature 98.2 F Pulse Rate 108 H Respiratory 18 17 Rate Blood Pressure 128/89 Blood Pressure [Right] O2 Sat by Pulse 98 100 100 Oximetry 06/11/21 10:48 Temperature 98.4 F Pulse Rate 85 Respiratory 16 Rate Blood Pressure Blood Pressure 107/64 [Right] O2 Sat by Pulse Oximetry ED Medical Decision Making - Lab Data Result diagrams: 06/11/21 05:02 06/11/21 05:02 Lab Results 06/11/21 06/11/21 06/11/21 Range/Units 05:02 05:02 05:02 WBC 11.0 (4.5-11.0) K/mm3 RBC 4.77 (3.65-5.03) M/mm3 Hgb 14.4 (11.8-15.2) gm/dl Hct 43.1 (35.5-45.6) % MCV 90 (84-94) fl MCH 30 (28-32) pg MCHC 33 (32-34) % RDW 13.7 (13.2-15.2) % Plt Count 338 (140-440) K/mm3 Lymph % (Auto) 20.8 (13.4-35.0) % [place] % (Auto) 12.4 H (0.0-7.3) % Eos % (Auto) 1.5 (0.0-4.3) % Baso % (Auto) 0.4 (0.0-1.8) % Lymph # (Auto) 2.3 (1.2-5.4) K/mm3 [place] # (Auto) 1.4 H (0.0-0.8) K/mm3 Eos # (Auto) 0.2 (0.0-0.4) K/mm3 Baso # (Auto) 0.0 (0.0-0.1) K/mm3 Seg Neutrophils % 64.9 (40.0-70.0) % Seg Neutrophils # 7.1 (1.8-7.7) K/mm3 Sodium 135 L (137-145) mmol/L Potassium 4.1 (3.6-5.0) mmol/L Chloride 100.8 (98-107) mmol/L Carbon Dioxide 24 (22-30) mmol/L Anion Gap 14 mmol/L BUN 10 (9-20) mg/dL Creatinine 0.9 (0.8-1.3) mg/dL Estimated GFR > 60 ml/min BUN/Creatinine Ratio 11 % Glucose 80 (75-100) mg/dL Calcium 9.5 (8.4-10.2) mg/dL Salicylates < 0.3 L (2.8-20.0) mg/dL Acetaminophen (10.0-30.0) ug/mL Plasma/Serum Alcohol (0-0.07) % 06/11/21 06/11/21 Range/Units 05:02 05:02 WBC (4.5-11.0) K/mm3 RBC (3.65-5.03) M/mm3 Hgb (11.8-15.2) gm/dl Hct (35.5-45.6) % MCV (84-94) fl MCH (28-32) pg MCHC (32-34) % RDW (13.2-15.2) % Plt Count (140-440) K/mm3 Lymph % (Auto) (13.4-35.0) % [place] % (Auto) (0.0-7.3) % Eos % (Auto) (0.0-4.3) % Baso % (Auto) (0.0-1.8) % Lymph # (Auto) (1.2-5.4) K/mm3 [place] # (Auto) (0.0-0.8) K/mm3 Eos # (Auto) (0.0-0.4) K/mm3 Baso # (Auto) (0.0-0.1) K/mm3 Seg Neutrophils % (40.0-70.0) % Seg Neutrophils # (1.8-7.7) K/mm3 Sodium (137-145) mmol/L Potassium (3.6-5.0) mmol/L Chloride (98-107) mmol/L Carbon Dioxide (22-30) mmol/L Anion Gap mmol/L BUN (9-20) mg/dL Creatinine (0.8-1.3) mg/dL Estimated GFR ml/min BUN/Creatinine Ratio % Glucose (75-100) mg/dL Calcium (8.4-10.2) mg/dL Salicylates (2.8-20.0) mg/dL Acetaminophen 5.0 L (10.0-30.0) ug/mL Plasma/Serum Alcohol < 0.01 (0-0.07) % - Medical Decision Making 40-year-old male with past medical history ADHD, depression, and anxiety who does not meet criteria for 1013. Patient appears to be seeking psychiatric resources. Awaiting mental health consult to provide outpatient follow-up resources Mental health was able to elicit history of cocaine abuse with last use 2 days ago and depression without SI or HI. Recommendation for discharge and to start Wellbutrin XL 150mg po daily, Start Trazodone 50mg po QHS, and outpatient follow-up Critical Care Time: No Critical care attestation.: If time is entered above; I have spent that time in minutes in the direct care of this critically ill patient, excluding procedure time. ED Disposition Clinical Impression: Anxiety, Depression, ADHD, Cocaine abuse Disposition: 01 HOME / SELF CARE / HOMELESS Is pt being admited?: No Does the pt Need Aspirin: No Condition: Stable Instructions: Living With Depression, Substance Use Disorder and Mental Illness Additional Instructions: Take the medication as prescribed. Return if symptoms worsen as indicated by your discharge instructions. Professional and Agency Contacts To help [facility] (26/11) [place] Crisis Line: Suicide Prevention Line: Crisis Text Line: Text ``START to 753910 Emergency: 911 Outpatient COMMUNITY Behavioral Health Resources: ROBERT: [facility] [address] [place], [place] [address] [place]: [facility] [address] [place] [address] Saturday thru Saturday - 8am - 5pm Call to schedule an assessment for mental health and substance abuse programs TODD: [facility] Address: [address] [place], [place] [address]Saturday thru Saturday- 7am-2pm [facility] Address: [address] [place] [id number] Saturday thru Saturday: 8:30AM-5PM SUBSTANCE ABUSE PROGRAMS: [facility]: Location: [place], [place] Staff Ranker Address: [address] [place] [address] [facility] Recovery: Address: [address] [place] [address] [facility] Rehabilitation: Address: [address] [place] [address] [facility] Community: Address: [address] [place] [address] Prescriptions: traZODone [Desyrel] 50 mg PO QHS 30 Days #30 tab buPROPion XL [Wellbutrin Xl] 150 mg PO QAM 30 Days #30 Referrals: PRIMARY CARE, [Primary Care Provider] - 3-5 Days Time of Disposition: 11:07
--- NOTE | 2021-06-11 10:09 | Consultation ---
History of Present Illness - Reason for Consult Consult date: 06/11/21 Reason for consult: mental health evaluation - History of Present Psychiatric Illness ED Note: 40-year-old male with a past medical history of ADHD, anxiety, and depression presents to the hospital with complaints of needing to speak to a doctor. Patient appears to not have any mental health resources and wants advice on to how to get help. He denies hallucinations, homicidal, or suicidal ideation. He also denies physical complaints. He has been on medications in the past but cannot recall the name. Is not currently taking any medications for psychiatric conditions The patient is a 40 year old male with history of cocaine use, Depression, Anxiety, and ADHD who presents to the ED requesting mental health resources. The patient was seen this morning. He is calm, alert and oriented x3. He reports that he last used cocaine about 2 days ago and have been feeling depressed since then. He is requesting mental health resources. The patient is noncompliant with psychotropic medications, unable to state what meds he has been prescribed. The patient denies any current suicidal/homicidal and denies hallucinations. PAST PSYCHIATRIC HISTORY Diagnoses: Depression, Anxiety, ADHD, Cocaine use disorder Suicide attempts or Self-harm behavior: Denies Prior psychiatric hospitalizations: Denies Substance Abuse history: Cocaine Previous psychiatric medications tried: Unable to recall Outpatient treatment: Denies PAST MEDICAL HISTORY: Family Psychiatric History: Not available SOCIAL HISTORY Marital Status: Single Living Arrangements: Lives with girlfriend Employment Status:employed Access to guns/weapons: None reported Education:2 year college History of Abuse: None reported Legal History: None reported REVIEW OF SYSTEMS Constitutional: Negative for weight loss ENT: Negative for stridor Respiratory: Negative for cough or hemoptysis All other systems reviewed and are negative MENTAL STATUS EXAMINATION General Appearance and Behavior: Age appropriate, good hygiene, wearing appropriate clothes, good eye contact, cooperative polite with questioning. Cooperation: Participating/engaged Psychomotor Behavior: unremarkable and within normal limits Mood:OK Affect and affective range: congruent with mood Thought Process: Goal directed Thought Content: Denies Speech: Normal volume, Regular rate and rhythm Intellectual Functioning: Average Suicidal Ideation: Denies Homicidal Ideation: Denies Hallucinations: Denies Impulse Control: Unimpaired Insight and Judgment: Normal insight and judgment Memory: Normal Attention: Divided Orientation: Alert, oriented Assessment and Plan (1) Depression (2) cocaine use disorder Current Visit: Yes Status: Acute RECOMMENDATIONS [id number] continue home meds. Start Wellbutrin XL 150mg po daily Start Trazodone 50mg po QHS Risks, benefits and alternatives of medications discussed with the patient, questions answered and consent obtained from patient. PSYCHOTHERAPY: Supportive psychotherapy provided MEDICAL: Per primary team DELIRIUM PRECAUTIONS: Please re-orient patient frequently, keep lights on during the day, and minimize benzodiazepines and opiates as these medications could worsen patient's confusion. WIRELESS WATCHER: Per medical team DISPOSITION: Do not recommend acute inpatient psychiatric hospitalization at this time. Senior Human Resources Representative will provide patient with psychiatric outpatient resources FOLLOW-UP: Will sign off. Thank you for the consult. Please contact with any questions and/or concerns. Medications and Allergies Allergies Allergy/AdvReac Type Severity Reaction Status Date / Time No Known Allergies Allergy Verified 12/22/16 09:28 Home Medications Medication Instructions Recorded Confirmed Last Taken Type buPROPion XL [Wellbutrin Xl] 150 mg PO QAM 30 Days #30 06/11/21 Unknown Rx traZODone [Desyrel] 50 mg PO QHS 30 Days #30 tab 06/11/21 Unknown Rx Mental Status Exam - Vital signs Last Vital Signs Temp 98.2 F 06/11/21 04:19 Pulse 108 H 06/11/21 04:19 Resp 17 06/11/21 06:34 BP 128/89 06/11/21 04:19 Pulse Ox 100 06/11/21 06:34 Results Result Diagrams: 06/11/21 05:02 06/11/21 05:02 Abnormal lab results 06/11/21 06/11/21 06/11/21 Range/Units 05:02 05:02 05:02 [place] % (Auto) 12.4 H (0.0-7.3) % [place] # (Auto) 1.4 H (0.0-0.8) K/mm3 Sodium 135 L (137-145) mmol/L Salicylates < 0.3 L (2.8-20.0) mg/dL Acetaminophen (10.0-30.0) ug/mL 06/11/21 Range/Units 05:02 [place] % (Auto) (0.0-7.3) % [place] # (Auto) (0.0-0.8) K/mm3 Sodium (137-145) mmol/L Salicylates (2.8-20.0) mg/dL Acetaminophen 5.0 L (10.0-30.0) ug/mL All other labs normal.
[2021-06-11 10:49] VITALS: BP 107/64
== END 2021-06-11 11:35 | disposition home or self-care (01) ==
LOC: ED 04:04
DX: F41.9 Anxiety disorder, unspecified (principal); F32.A Depression, unspecified; F90.9 Attention-deficit hyperactivity disorder, unspecified type; F14.10 Cocaine abuse, uncomplicated; F17.200 Nicotine dependence, unspecified, uncomplicated; Z20.822 Contact with and (suspected) exposure to COVID-19
CPT/HCPCS: 36415; 80048; 85025; 99284; U0003; 80320; G0480